=== PATIENT | female | born 1995 | race American Indian/Alaskan Native ===

== ENCOUNTER 2017-04-07 10:56 | Emergency (ER) | payer OTHER ==
[2017-04-07 12:00] VITALS: BP 105/64
[2017-04-07 12:12] LABS: Eosinophils % (Auto) 6.2 % (0.0-4.3); Hematocrit 40.1 % (30.3-42.9); Hemoglobin 13.4 gm/dl (10.1-14.3); Mean Corpuscular HGB Conc 33 % (30-34); Mean Corpuscular Hemoglobin 30 pg (28-32); Mean Corpuscular Volume 89 fl (79-97); Platelet Count 235 K/mm3 (140-440); Red Blood Count 4.51 M/mm3 (3.65-5.03); Red Cell Distribution Width 13.6 % (13.2-15.2)
[2017-04-07 12:46] LABS: Alanine Aminotransferase 10 units/L (7-56); Albumin 4.4 g/dL (3.9-5); Albumin/Globulin Ratio 1.4 %; Alkaline Phosphatase 57 units/L (35-129); Anion Gap 19 mmol/L; Blood Urea Nitrogen 9 mg/dL (7-17); Calcium 9.2 mg/dL (8.4-10.2); Carbon Dioxide 23 mmol/L (22-30); Chloride 101.2 mmol/L (98-107); Glucose 86 mg/dL (65-100); Lipase 18 units/L (13-60); Sodium 139 mmol/L (137-145); Total Protein 7.5 g/dL (6.3-8.2)
[2017-04-07 14:50] LABS: Bacteria,Urine 1+ /HPF (Negative); Bilirubin,Urine NEG (Negative); Blood,Urine NEG (Negative); Ketones,Urine NEG (Negative); Leukocyte Esterase,Urine NEG (Negative); Mucus,Urine 2+ /HPF; Nitrite,Urine NEG (Negative); Protein,Urine <15 mg/dL mg/dL (Negative); Urobilinogen,Urine < 2.0 mg/dL (<2.0); WBC,Urine < 1.0 /HPF (0.0-6.0)
--- NOTE | 2017-04-09 01:30 | ED Elopement Review ---
ED Pt Elopement review - Results review Lab results: Laboratory Tests 04/07/17 04/07/17 04/07/17 12:01 12:01 14:14 WBC 10.0 RBC 4.51 Hgb 13.4 Hct 40.1 MCV 89 MCH 30 MCHC 33 RDW 13.6 Plt Count 235 Lymph % (Auto) 20.0 [place] % (Auto) 8.6 H Eos % (Auto) 6.2 H Baso % (Auto) 1.0 Lymph # 2.0 [place] # 0.9 H Eos # 0.6 H Baso # 0.1 Seg Neutrophils % 64.2 Seg Neutrophils # 6.4 Sodium 139 Potassium 4.0 Chloride 101.2 Carbon Dioxide 23 Anion Gap 19 BUN 9 Creatinine 0.6 L Estimated GFR > 60 BUN/Creatinine Ratio 15.00 Glucose 86 Calcium 9.2 Total Bilirubin 0.40 AST 16 ALT 10 Alkaline Phosphatase 57 Total Protein 7.5 Albumin 4.4 Albumin/Globulin Ratio 1.4 Lipase 18 Urine Color Yellow Urine Turbidity Clear Urine pH 5.0 Ur Specific [place] 1.023 Urine Protein <15 mg/dl Urine Glucose (UA) Neg Urine Ketones Neg Urine Blood Neg Urine Nitrite Neg Ur Reducing Substances Not Reportable Urine Bilirubin Neg Urine Ictotest Not Reportable Urine Urobilinogen < 2.0 Ur Leukocyte Esterase Neg Urine WBC (Auto) < 1.0 Urine RBC (Auto) 1.0 U Epithel Cells (Auto) 1.0 Urine Bacteria (Auto) 1+ Urine Mucus 2+ Urine HCG, Qual Negative - Call Back decision Pt Call Back Decision: No action required
== END 2017-04-07 14:10 | disposition left against medical advice (07) ==
LOC: ED 10:56
DX: R10.30 Lower abdominal pain, unspecified (principal); K59.00 Constipation, unspecified; Z53.21 Procedure and treatment not carried out due to patient leaving prior to being seen by health care provider
CPT/HCPCS: 36415; 80053; 81001; 81025; 83690; 85025

== ENCOUNTER 2020-05-14 15:06 | Emergency (ER) | payer OTHER ==
--- NOTE | 2020-05-14 15:47 | Emergency Department Report ---
Blank Doc - Documentation Documentation: 24-year-old female that is 11 weeks presents with vaginal discharge. Denies any vaginal bleeding. This initial assessment/diagnostic orders/clinical plan/treatment(s) is/are subject to change based on patient's health status, clinical progression and re- assessment by fellow clinical providers in the ED. Further treatment and workup at subsequent clinical providers discretion. Patient/guardians urged not to elope from the ED as their condition may be serious if not clinically assessed and managed. Initial orders include: 1- Patient sent to [facility] for further evaluation and treatment 2- UA 3- pelvic exam to be done
[2020-05-14 15:49] VITALS: BP 116/61
[2020-05-14 16:15] LABS: Bacteria,Urine 1+ /HPF (Negative); Bilirubin,Urine NEG (Negative); Blood,Urine NEG (Negative); Color,Urine Yellow (Yellow); Mucus,Urine FEW /HPF; Protein,Urine <15 mg/dL mg/dL (Negative); RBC,Urine < 1.0 /HPF (0.0-6.0); Urobilinogen,Urine < 2.0 mg/dL (<2.0)
--- NOTE | 2020-05-14 22:53 | Ultrasound Report ---
ULTRASOUND OBSTETRIC INDICATION / CLINICAL INFORMATION: , abd pain. TECHNIQUE: Transabdominal. COMPARISON: None available. FINDINGS: GESTATIONAL SAC: Well-defined oval shape and intrauterine in location. YOLK SAC: No significant abnormality. EMBRYO/FETUS: No significant abnormality. - [place]-Rump Length = 45.7 cm = 11 weeks, 3 day(s). - Heart Rate, beats per minute (if present) = 165 ADNEXA: Right ovary within normal limits. 1.8 x 1.6 x 2.7 cm left ovarian follicular cyst. FREE FLUID: None. ADDITIONAL FINDINGS: None. IMPRESSION: 1. Single, living intrauterine with estimated sonographic age of 11 weeks, 3 day(s). 2. Small 2.7 cm left ovarian follicular cyst Signer Name: Maverick Vance MD Signed: 05/14/2020 10:48 PM Workstation Name: [id number]
[2020-05-14] MEDS ORDERED: LIDOCAINE-MPF (1%) 10 MG/1 ML VIAL 5 ML INFILTRATI ONE (23:23)
[2020-05-14] MEDS ORDERED: AZITHROMYCIN 250 MG TAB PO ONE (23:23)
--- NOTE | 2020-05-14 23:28 | Emergency Department Report ---
ED Female HPI - General Chief complaint: Urogenital-Female Stated complaint: PREG 11WEEKS/VAG INFECTION Time Seen by Provider: 05/14/20 15:45 Source: patient Mode of arrival: Ambulatory Limitations: No Limitations - History of Present Illness Initial comments: Patient is a 24-year-old female presents emergency room with complaints of vaginal discharge and irritation that began a couple days ago. She states she believes she has an vaginal infection. She has associated itching. She denies any vaginal bleeding, fever, dysuria. She says she has associated lower abdominal discomfort. States she is currently 11 weeks . 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 She states he has a past medical history of hyperlipidemia. She denies allergies to medications. /P:1/A:0 - Related Data Home Medications Medication Instructions Recorded Confirmed Last Taken Tablet 1 tab PO DAILY 12/13/16 12/13/16 12/13/16 10:25 1 Previous Rx's Medication Instructions Recorded Last Taken Type Ibuprofen [Motrin 600 MG tab] 600 mg PO Q8H PRN #30 tablet 12/25/16 Unknown Rx Multivitamin with Iron 1 each PO DAILY #30 tablet 12/25/16 Unknown Rx [Multivitamins with Iron] oxyCODONE /ACETAMINOPHEN [Percocet 1 tab PO Q6HR PRN #30 tablet 12/25/16 Unknown Rx 5/325] metroNIDAZOLE [Flagyl] 500 mg PO BID 7 Days #14 tab 05/14/20 Unknown Rx Allergies Allergy/AdvReac Type Severity Reaction Status Date / Time No Known Allergies Allergy Unverified 12/08/16 11:52 ED Review of Systems ROS: Stated complaint: PREG 11WEEKS/VAG INFECTION Other details as noted in HPI Comment: All other systems reviewed and negative ED Past Medical Hx - Past Medical History Previous Medical History?: No Hx Hypertension: No Hx Congestive Heart Failure: No Hx Diabetes: No Hx Deep Vein Thrombosis: No Hx Renal Disease: No Hx Sickle Cell Disease: No Hx Seizures: No Hx Asthma: No Hx COPD: No - Surgical History Past Surgical History?: Yes Additional Surgical History: C section - Social History Smoking Status: Never Smoker Substance Use Type: None - Medications Home Medications: Home Medications Medication Instructions Recorded Confirmed Last Taken Type Tablet 1 tab PO DAILY 12/13/16 12/13/16 12/13/16 10:25 History 1 Ibuprofen [Motrin 600 MG tab] 600 mg PO Q8H PRN #30 tablet 12/25/16 Unknown Rx Multivitamin with Iron 1 each PO DAILY #30 tablet 12/25/16 Unknown Rx [Multivitamins with Iron] oxyCODONE /ACETAMINOPHEN [Percocet 1 tab PO Q6HR PRN #30 tablet 12/25/16 Unkn own Rx 5/325] metroNIDAZOLE [Flagyl] 500 mg PO BID 7 Days #14 tab 05/14/20 Unknown Rx ED Physical Exam - General Limitations: No Limitations General appearance: alert, in no apparent distress - Head Head exam: Present: atraumatic, normocephalic - Eye Eye exam: Present: normal appearance - ENT ENT exam: Present: mucous membranes moist - Respiratory Respiratory exam: Present: normal lung sounds bilaterally. Absent: respiratory distress, wheezes, rales, rhonchi, stridor, chest wall tenderness, accessory muscle use, decreased breath sounds, prolonged expiratory - Cardiovascular Cardiovascular Exam: Present: regular rate, normal rhythm, normal heart sounds. Absent: systolic murmur, diastolic murmur, rubs, gallop - GI/Abdominal GI/Abdominal exam: Present: soft, normal bowel sounds. Absent: distended, tenderness, guarding, rebound, rigid - External exam: Present: normal external exam. Absent: erythema, swelling, lesions, lacerations, ecchymosis Speculum exam: Present: other (addressing machine operator: corby, had a small speculum in order to do wet prep and G/C, pt refused speculum, would not allow it to be inserted) - Neurological Exam Neurological exam: Present: alert, oriented X3 - Psychiatric Psychiatric exam: Present: normal affect, normal mood - Skin Skin exam: Present: warm, dry, intact ED Course Vital Signs 05/14/20 05/15/20 15:46 00:05 Temperature 98.0 F Pulse Rate 71 75 Respiratory 18 16 Rate Blood Pressure 116/61 O2 Sat by Pulse 98 98 Oximetry ED Medical Decision Making - Lab Data Lab Results 05/14/20 Range/Units 15:58 Urine Color Yellow (Yellow) Urine Turbidity Clear (Clear) Urine pH 7.0 (5.0-7.0) Ur Specific [place] 1.008 (1.003-1.030) Urine Protein <15 mg/dl (Negative) mg/dL Urine Glucose (UA) Neg (Negative) mg/dL Urine Ketones Neg (Negative) mg/dL Urine Blood Neg (Negative) Urine Nitrite Neg (Negative) Urine Bilirubin Neg (Negative) Urine Urobilinogen < 2.0 (<2.0) mg/dL Ur Leukocyte Esterase Sm (Negative) Urine WBC (Auto) 1.0 (0.0-6.0) /HPF Urine RBC (Auto) < 1.0 (0.0-6.0) /HPF U Epithel Cells (Auto) 1.0 (0-13.0) /HPF Urine Bacteria (Auto) 1+ (Negative) /HPF Urine Mucus Few /HPF - Radiology Data Radiology results: report reviewed ULTRASOUND OBSTETRIC INDICATION / CLINICAL INFORMATION: , abd pain. TECHNIQUE: Transabdominal. COMPARISON: None available. FINDINGS: GESTATIONAL SAC: Well-defined oval shape and intrauterine in location. YOLK SAC: No significant abnormality. EMBRYO/FETUS: No significant abnormality. - [place]-Rump Length = 45.7 cm = 11 weeks, 3 day(s). - Heart Rate, beats per minute (if present) = 165 ADNEXA: Right ovary within normal limits. 1.8 x 1.6 x 2.7 cm left ovarian follicular cyst. FREE FLUID: None. ADDITIONAL FINDINGS: None. IMPRESSION: 1. Single, living intrauterine with estimated sonographic age of 11 weeks, 3 day(s). 2. Small 2.7 cm left ovarian follicular cyst Signer Name: Maverick Vance MD Signed: 05/14/2020 10:48 PM Workstation Name: [id number] Transcribed By: TL Dictated By: Maverick Vance MD Electronically Authenticated By: Maverick Vance MD Signed Date/Time: 05/14/202247 DD/ 38 TD/TT: - Medical Decision Making Patient is a 24-year-old female presents emergency room with complaints of vaginal discharge and irritation that began a couple days ago. She states she believes she has an vaginal infection. She has associated itching. She denies any vaginal bleeding, fever, dysuria. She says she has associated lower abdominal discomfort. States she is currently 11 weeks . 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 She states he has a past medical history of hyperlipidemia. She denies allergies to medications. /P:1/A:0. Vitals are normal. No abdominal tenderness on exam. UA without evidence of UTI. OB ultrasound shows 1. Single, living intrauterine with estimated sonographic age of 11 weeks, 3 day(s). 2. Small 2.7 cm left ovarian follicular cyst. Attempted to perform pelvic examination in order to obtain wet prep and GC swabs and to assess cervix and adnexa, patient refused speculum examination and signed out AGAINST MEDICAL ADVICE, addressing machine operator angella tavarez was present during this encounter. Due to the fact patient is and concern that if she does have PID could affect not only her but the fetus, will treat patient empirically for PID. Discussed with patient the risk associated with leaving AGAINST MEDICAL ADVICE and not receiving a pelvic examination and she verbalized understanding. Patient given ceftriaxone and azithromycin while in the ED. Patient given prescription for Flagyl. Advised patient that she need to follow- up with her [employer] 1ST SHIFT As soon as possible. advised pt please follow-up with your MAT[employer] 1ST SHIFT as soon as possible. You are leaving today AGAINST MEDICAL ADVICE risks associated without a complete examination include , disability, permanent loss of quality of life, harm to your fetus. Return to the emergency room for any new or worsening symptoms. Please take medication as prescribed. The patient is alert and oriented x3. The patient exhibits decision-making capacity. The patient is free from distracting injury. The risk of leaving without a complete medical examination, and AGAINST MEDICAL ADVICE, were explained to the patient, and they included , disability, paralysis, permanent loss of quality of life, and harm to fetus. Patient verbalized understanding to these and was able to articulate these risk in their own words. - Differential Diagnosis STD, UTI, PID, bacterial vaginosis, yeast, vaginitis Critical care attestation.: If time is entered above; I have spent that time in minutes in the direct care of this critically ill patient, excluding procedure time. ED Disposition Clinical Impression: Vaginal discharge, Suprapubic pain Disposition: DC- LEFT AGAINST MED ADVICE Is pt being admited?: No Does the pt Need Aspirin: No Condition: Undetermined Additional Instructions: Please follow-up with your [employer] 1ST SHIFT as soon as possible. You are leaving today AGAINST MEDICAL ADVICE risks associated without a complete examination include , disability, permanent loss of quality of life, harm to your fetus. Return to the emergency room for any new or worsening symptoms. Please take medication as prescribed. Prescriptions: metroNIDAZOLE [Flagyl] 500 mg PO BID 7 Days #14 tab Referrals: your, technical services coordinator [Other] - EULOGIO Forms: AMA Form Time of Disposition: 23:27 Print Language: GREEK
== END 2020-05-15 00:05 | disposition left against medical advice (07) ==
LOC: ED 15:06
DX: O26.891 Other specified pregnancy related conditions, first trimester (principal); N89.8 Other specified noninflammatory disorders of vagina; R10.2 Pelvic and perineal pain; Z3A.11 11 weeks gestation of pregnancy; Z98.890 Other specified postprocedural states; Z79.1 Long term (current) use of non-steroidal anti-inflammatories (NSAID); Z79.899 Other long term (current) drug therapy
CPT/HCPCS: 76801; 81001; 96372; 99284; J0696

== ENCOUNTER 2020-09-06 14:21 | Outpatient (CLI) | payer OTHER ==
[2020-09-06] MEDS ORDERED: LACTATED RINGERS 500 ML IV ONE (14:52)
[2020-09-06 15:58] LABS: Bilirubin,Urine NEG (Negative); Blood,Urine NEG (Negative); Color,Urine Yellow (Yellow); Hyaline Casts,Urine 1 /LPF; Protein,Urine <15 mg/dL mg/dL (Negative); Urobilinogen,Urine < 2.0 mg/dL (<2.0)
[2020-09-06 18:21] VITALS: BP 107/64
== END 2020-09-06 16:25 | disposition home or self-care (01) ==
LOC: TRG 14:21 → APU 14:22 → TRG 16:25
PROVIDERS: ATTEND Obstetrics & Gynecology
DX: O26.892 Other specified pregnancy related conditions, second trimester (principal); R10.32 Left lower quadrant pain; O21.2 Late vomiting of pregnancy; O47.02 False labor before 37 completed weeks of gestation, second trimester; Z3A.27 27 weeks gestation of pregnancy
CPT/HCPCS: 59025; 81001; J7120; 96360

== ENCOUNTER 2020-10-20 20:44 | Outpatient (CLI) | payer OTHER, MEDICAID ==
[2020-10-20 21:17] VITALS: BP 114/73
[2020-10-20 21:19] LABS: Bacteria,Urine 2+ /HPF (Negative); Bilirubin,Urine NEG (Negative); Blood,Urine LG (Negative); Color,Urine Yellow (Yellow); Mucus,Urine FEW /HPF; Protein,Urine <15 mg/dL mg/dL (Negative); Urobilinogen,Urine < 2.0 mg/dL (<2.0)
[2020-10-20] MEDS ORDERED: FLUCONAZOLE 200 MG TAB PO ONE (21:27)
--- NOTE | 2020-10-20 21:32 | Ultrasound Report ---
ULTRASOUND OBSTETRIC LIMITED INDICATION / CLINICAL INFORMATION: vaginal bleeding, does not tolerate vag exam. Clinical Gestational Age (GA): 34.1 weeks.days COMPARISON: None available. FINDINGS: HEART RATE (beats per minute): 149 PRESENTATION: Cephalic. PLACENTA: Posterior fundal, grade 2. CERVIX: The cervix measures 3.1 cm in length. ADDITIONAL FINDINGS: None. IMPRESSION: 1. No significant abnormality. Single living intrauterine gestation. Signer Name: Jamaal Zelaya MD Signed: 10/20/2020 9:27 PM Workstation Name: [id number]
== END 2020-10-20 21:46 | disposition home or self-care (01) ==
LOC: TRG 20:44 → APU 20:45 → TRG 21:46
PROVIDERS: ATTEND Obstetrics & Gynecology
DX: O46.93 Antepartum hemorrhage, unspecified, third trimester (principal); Z3A.34 34 weeks gestation of pregnancy
CPT/HCPCS: 59025; 76815; 81001; 87086

== ENCOUNTER 2020-11-03 07:17 | Outpatient (CLI) | payer OTHER, MEDICAID ==
[2020-11-03 07:47] VITALS: BP 116/64
[2020-11-03] MEDS ORDERED: BETAMET ACET/BETAMET NA PH 6 MG/ML INJ 5 ML MDV IM SCH (07:58)
[2020-11-03] MEDS ORDERED: LACTATED RINGERS 500 ML IV ONE (08:13)
== END 2020-11-03 08:21 | disposition home or self-care (01) ==
LOC: TRG 07:17 → APU 07:18 → TRG 08:21
PROVIDERS: ATTEND Obstetrics & Gynecology
DX: O47.03 False labor before 37 completed weeks of gestation, third trimester (principal); Z3A.36 36 weeks gestation of pregnancy
CPT/HCPCS: 59025; 96372; J0702

== ENCOUNTER 2020-11-04 07:27 | Outpatient (CLI) | payer OTHER, MEDICAID ==
[2020-11-04] MEDS ORDERED: BETAMET ACET/BETAMET NA PH 6 MG/ML INJ 5 ML MDV IM NR (07:53)
== END 2020-11-04 08:16 | disposition home or self-care (01) ==
LOC: TRG 07:27 → APU 07:27 → TRG 08:16
PROVIDERS: ATTEND Obstetrics & Gynecology
DX: O47.03 False labor before 37 completed weeks of gestation, third trimester (principal); Z3A.35 35 weeks gestation of pregnancy
CPT/HCPCS: 96372; J0702

== ENCOUNTER 2021-01-05 21:34 | Emergency (ER) | payer OTHER, MEDICAID ==
--- NOTE | 2021-01-05 21:42 | Emergency Department Report ---
Blank Doc - Documentation Documentation: 25-year-old female that presents with right lower abdominal pain. Patient agr ees to having nausea. Exam: Right lower quadrant tenderness. 1- This initial assessment/diagnostic orders/clinical plan/ treatment(s) is/are subject to change based on pt's health status, clinical progression and re- assessment by fellow clinical providers in the ED. Further treatment and workup at subsequent clinical provers discretion. Patient/guardians urged not to elope from ED as their condition may be serious if not clinically assessed and managed. 2-labs 3-UA
[2021-01-05 22:06] LABS: Basophils # (Auto) 0.1 K/mm3 (0.0-0.1); Eosinophils # (Auto) 0.4 K/mm3 (0.0-0.4); Eosinophils % (Auto) 4.7 % (0.0-4.3); Hematocrit 37.7 % (30.3-42.9); Hemoglobin 12.6 gm/dl (10.1-14.3); Lymphocytes # (Auto) 2.3 K/mm3 (1.2-5.4); Lymphocytes % (Auto) 30.4 % (13.4-35.0); Mean Corpuscular HGB Conc 34 % (30-34); Mean Corpuscular Volume 90 fl (79-97); Monocytes # (Auto) 0.6 K/mm3 (0.0-0.8); Monocytes % (Auto) 7.5 % (0.0-7.3); Platelet Count 274 K/mm3 (140-440); Red Cell Distribution Width 14.4 % (13.2-15.2)
[2021-01-05 22:15] LABS: Alanine Aminotransferase 12 units/L (7-56); Albumin 4.2 g/dL (3.9-5); Blood Urea Nitrogen 5 mg/dL (7-17); Calcium 8.9 mg/dL (8.4-10.2); Hemolysis Index 8
[2021-01-05 22:17] LABS: BUN/Creatinine Ratio 7
[2021-01-05 22:22] LABS: Bilirubin,Urine NEG (Negative); Blood,Urine MOD (Negative); Color,Urine Yellow (Yellow); Mucus,Urine FEW /HPF; Protein,Urine <15 mg/dL mg/dL (Negative); Urobilinogen,Urine < 2.0 mg/dL (<2.0)
--- NOTE | 2021-01-06 00:53 | Emergency Department Report ---
HPI - General Chief Complaint: Abdominal Pain Time Seen by Provider: 01/05/21 21:41 - HPI HPI: Room 39 The patient is a 25-year-old female present with a chief complaint of abdominal pain. The patient states for 1 week she has had intermittent right lower quadrant abdominal pain. Patient states pain feels like a "pulled muscle". Patient denies nausea vomiting or diarrhea. Patient denies dysuria or vaginal discharge. Patient denies fever. The patient states she felt a "lump" by her umbilicus tonight prompting her to come to the emergency department. The patient is 11/05/2020 and is breast-feeding ED Past Medical Hx - Past Medical History Previous Medical History?: No - Surgical History Past Surgical History?: Yes Additional Surgical History: C section x2 - Family History Family history: no significant - Social History Smoking Status: Never Smoker Substance Use Type: None (Denies illicit drug use), Alcohol (Occasional) - Medications Home Medications: Home Medications Medication Instructions Recorded Confirmed Last Taken Type Tablet 1 tab PO DAILY 12/13/16 11/05/20 11/02/20 History Ibuprofen [Motrin] 600 mg PO Q6H PRN #60 tablet 11/06/20 Unknown Rx oxyCODONE /ACETAMINOPHEN [Percocet 1 tab PO Q6HR PRN #30 tablet 11/07/20 Unknown Rx 5/325] traMADoL [Ultram] 50 mg PO Q6HR PRN #10 tablet 01/06/21 Unknown Rx ED Review of Systems ROS: Stated complaint: STOMACH PAIN;MUSCLE PAIN Other details as noted in HPI Constitutional: denies: fever Eyes: denies: eye pain ENT: denies: throat pain Respiratory: no symptoms reported Cardiovascular: denies: chest pain Endocrine: no symptoms reported Gastrointestinal: abdominal pain. denies: nausea, vomiting, diarrhea Genitourinary: denies: dysuria, discharge Musculoskeletal: denies: back pain Neurological: headache Physical Exam - Physical Exam Vital Signs: Vital Signs 01/05/21 21:43 Temperature 97.9 F Pulse Rate 65 Respiratory 16 Rate Blood Pressure 102/53 [Right] O2 Sat by Pulse 99 Oximetry Physical Exam: GENERAL: The patient is well-developed well-nourished female lying on stretcher not appearing to be in acute distress. [] HEENT: Normocephalic. Atraumatic. Extraocular motions are intact. Patient has moist mucous membranes. NECK: Supple. Trachea midline CHEST/LUNGS: Clear to auscultation. There is no respiratory distress noted. HEART/CARDIOVASCULAR: Regular. There is no tachycardia. There is no gallop rub or murmur. ABDOMEN: Abdomen is soft, and not tender to palpation in all 4 quadrants however there is some mild discomfort to palpation at the umbilicus. Patient has normal bowel sounds. There is no abdominal distention. SKIN: There is no rash. There is no edema. There is no diaphoresis. NEURO: The patient is awake, alert, and oriented. The patient is cooperative. The patient has no focal neurologic deficits. The patient has normal speech MUSCULOSKELETAL: There is no evidence of acute injury. ED Course Vital Signs 01/05/21 21:43 Temperature 97.9 F Pulse Rate 65 Respiratory 16 Rate Blood Pressure 102/53 [Right] O2 Sat by Pulse 99 Oximetry ED Medical Decision Making - Lab Data Result diagrams: 01/05/21 21:43 01/05/21 21:43 Laboratory Tests 01/05/21 01/05/21 01/05/21 21:43 21:43 21:43 WBC 7.6 RBC 4.20 Hgb 12.6 Hct 37.7 MCV 90 MCH 30 MCHC 34 RDW 14.4 Plt Count 274 Lymph % (Auto) 30.4 [place] % (Auto) 7.5 H Eos % (Auto) 4.7 H Baso % (Auto) Unit Technician Lymph # (Auto) 2.3 [place] # (Auto) 0.6 Eos # (Auto) 0.4 Baso # (Auto) 0.1 Seg Neutrophils % 56.5 Seg Neutrophils # 4.3 Sodium 138 Potassium 3.9 Chloride 105.0 Carbon Dioxide 22 Anion Gap 15 BUN 5 L Creatinine 0.7 Estimated GFR > 60 BUN/Creatinine Ratio 7 Glucose 85 Calcium 8.9 Total Bilirubin < 0.20 AST 16 ALT 12 Alkaline Phosphatase 74 Total Protein 7.2 Albumin 4.2 Albumin/Globulin Ratio 1.4 Lipase 25 HCG, Qual Negative Urine Color Urine Turbidity Urine pH Ur Specific [place] Urine Protein Urine Glucose (UA) Urine Ketones Urine Blood Urine Nitrite Urine Bilirubin Urine Urobilinogen Ur Leukocyte Esterase Urine WBC (Auto) Urine RBC (Auto) U Epithel Cells (Auto) Urine Mucus 01/05/21 Unknown WBC RBC Hgb Hct MCV MCH MCHC RDW Plt Count Lymph % (Auto) [place] % (Auto) Eos % (Auto) Baso % (Auto) Lymph # (Auto) [place] # (Auto) Eos # (Auto) Baso # (Auto) Seg Neutrophils % Seg Neutrophils # Sodium Potassium Chloride Carbon Dioxide Anion Gap BUN Creatinine Estimated GFR BUN/Creatinine Ratio Glucose Calcium Total Bilirubin AST ALT Alkaline Phosphatase Total Protein Albumin Albumin/Globulin Ratio Lipase HCG, Qual Urine Color Yellow Urine Turbidity Clear Urine pH 5.0 Ur Specific [place] 1.013 Urine Protein <15 mg/dl Urine Glucose (UA) Neg Urine Ketones Neg Urine Blood Mod Urine Nitrite Neg Urine Bilirubin Neg Urine Urobilinogen < 2.0 Ur Leukocyte Esterase Neg Urine WBC (Auto) 1.0 Urine RBC (Auto) 2.0 U Epithel Cells (Auto) 1.0 Urine Mucus Few - Radiology Data Radiology results: report reviewed (CT abdomen pelvis), image reviewed (CT abdomen pelvis) [facility] [address] [place] [address] Cat Scan Report Signed Patient: XENIA BAIRES MR#: [id number] : 1995 Acct:[id number] Age/Sex: 25 / F ADM Date: 01/05/21 Loc: ED Attending Dr: Ordering Physician: ANNA ORTIZ MD Date of Service: 01/06/21 Procedure(s): CT abdomen pelvis wo con Accession Number(s): [id number] cc: ANNA ORTIZ MD CT ABDOMEN AND PELVIS WITHOUT CONTRAST INDICATION / CLINICAL INFORMATION: Right Lower Quadrant Abdominal Pain, Umbilical Tenderness. TECHNIQUE: Axial CT images were obtained through the abdomen and pelvis without IV contrast. All CT scans at this location are performed using CT dose reduction for ALARA by means of automated exposure control. COMPARISON: None available. FINDINGS: LOWER CHEST: No significant abnormality. LIVER: No significant abnormality. GALLBLADDER: Contracted. BILE DUCTS: No significant abnormality. PANCREAS: No significant a bnormality. SPLEEN: No significant abnormality. ADRENALS: No significant abnormality. RIGHT KIDNEY / URETER: No significant abnormality. LEFT KIDNEY / URETER: No significant abnormality. STOMACH / SMALL BOWEL: No significant abnormality. COLON: No significant abnormality. APPENDIX: No significant ab normality. PERITONEUM: No free fluid. No free air. No fluid collection. LYMPH NODES: No significant adenopathy. AORTA / ARTERIES: No significant abnormality. IVC / VEINS: No significant abnormality. URINARY BLADDER: No significant abnormality. REPRODUCTIVE ORGANS: No significant abnormality. ADDITIONAL FINDINGS: None. SKELETAL SYSTEM: No significant abnormality. IMPRESSION: 1. No acute abnormality. Normal appendix. Signer Name: Sami Ervin MD Signed: 01/06/2021 3:02 AM Workstation Name: [id number] Transcribed By: SHARMILA Dictated By: Nixon Ervin MD Electronically Authenticated By: Nixon Ervin MD Signed Date/Time: 01/06/21301 DD/ 8 TD/TT: - Differential Diagnosis Umbilical hernia, appendicitis, gastritis, colitis Critical care attestation.: If time is entered above; I have spent that time in minutes in the direct care of this critically ill patient, excluding procedure time. 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 Please follow-up with him for further evaluation) Time of Disposition: 03:19
--- NOTE | 2021-01-06 03:07 | Cat Scan Report ---
CT ABDOMEN AND PELVIS WITHOUT CONTRAST INDICATION / CLINICAL INFORMATION: Right Lower Quadrant Abdominal Pain, Umbilical Tenderness. TECHNIQUE: Axial CT images were obtained through the abdomen and pelvis without IV contrast. All CT scans at this location are performed using CT dose reduction for ALARA by means of automated exposure control. COMPARISON: None available. FINDINGS: LOWER CHEST: No significant abnormality. LIVER: No significant abnormality. GALLBLADDER: Contracted. BILE DUCTS: No significant abnormality. PANCREAS: No significant abnormality. SPLEEN: No significant abnormality. ADRENALS: No significant abnormality. RIGHT KIDNEY / URETER: No significant abnormality. LEFT KIDNEY / URETER: No significant abnormality. STOMACH / SMALL BOWEL: No significant abnormality. COLON: No significant abnormality. APPENDIX: No significant abnormality. PERITONEUM: No free fluid. No free air. No fluid collection. LYMPH NODES: No significant adenopathy. AORTA / ARTERIES: No significant abnormality. IVC / VEINS: No significant abnormality. URINARY BLADDER: No significant abnormality. REPRODUCTIVE ORGANS: No significant abnormality. ADDITIONAL FINDINGS: None. SKELETAL SYSTEM: No significant abnormality. IMPRESSION: 1. No acute abnormality. Normal appendix. Signer Name: Sami Ervin MD Signed: 01/06/2021 3:02 AM Workstation Name: [id number]
[2021-01-06 03:31] VITALS: BP 102/59
== END 2021-01-06 03:36 | disposition home or self-care (01) ==
LOC: ED 21:34
DX: O90.89 Other complications of the puerperium, not elsewhere classified (principal); R10.31 Right lower quadrant pain; Z98.890 Other specified postprocedural states; Z79.1 Long term (current) use of non-steroidal anti-inflammatories (NSAID); Z79.899 Other long term (current) drug therapy
CPT/HCPCS: 36415; 74176; 80053; 81001; 83690; 84703; 85025